=== PATIENT | male | born 1960 | race Caucasian/White ===

== ENCOUNTER → 2017-11-06 | Outpatient (CLI) | payer OTHER ==
[~2017-11-06] MED LIST: BACTRIM DS TAB1 EAC1 PO; BACTRIM DS TAB1 EACH PO; CEFAZOLIN SODI500 MG PO; CEPHALEXIN500 MG PO; IBUPROFEN 400400 M2 PO; LORTAB 10-3251 EACH PO; NORCO 10-325 T1 EACH PO
[2017-11-06 17:26] LABS: ABSOLUTE BASOPHILS 0.1 thou/uL (0.0-0.2); ABSOLUTE EOSINOPHILS 0.1 thou/uL (0.0-0.7); ABSOLUTE LYMPHOCYTES 2.4 thou/uL (0.8-5.3); ABSOLUTE MONOCYTES 0.8 thou/uL (0.0-1.2); BASOPHILS 0.8 %; EOSINOPHILS 1.6 %; HEMATOCRIT 40.4 % (42.0-52.0); HEMOGLOBIN 13.8 gm/dL (14.0-18.0); LYMPHOCYTES 28.4 %; MCH 34.8 pg (26.0-34.0); MCHC 34.1 g/dL (28.0-37.0); MONOCYTES 9.7 %; MPV 6.3 fl. (7.2-11.1); NUCLEATED RBCS 0 /100WBC; PLATELET COUNT* 316 thou/uL (150-400); POLYS 59.5 %; RBC 3.96 mil/uL (4.50-6.00); RDW-CV 13.6 % (10.5-14.5); WBC 8.4 thou/uL (4.0-11.0)
[2017-11-06 17:52] LABS: ALBUMIN 3.7 g/dL (3.4-5.0); CALCIUM 8.8 mg/dL (8.5-10.1); CREATININE 0.8 mg/dL (0.6-1.3); TOTAL BILIRUBIN 0.2 mg/dL (<0.1-1.0); TOTAL PROTEIN 6.7 g/dL (6.4-8.2)
== END ==
LOC: M.ULTRA 16:00 → M.LAB 16:08 → M.ULTRA 16:08
PROVIDERS: Family Medicine
DX: M71.21 Synovial cyst of popliteal space [Baker], right knee (principal); M79.89 Other specified soft tissue disorders